=== PATIENT | female | born 1935 | race Two or more races ===

== ENCOUNTER 2023-07-27 12:35 | Inpatient (IN) | payer OTHER ==
[~2023-07-27] VITALS: Ht 157.5 cm; Wt 69.4 kg
[2023-07-27] MEDS ORDERED: TIROSINT50 MCG PO (13:37)
[2023-07-27] MEDS ORDERED: AZOR 10-20 MG1 EACH PO (13:38)
[2023-07-27] MEDS ORDERED: EPLERENONE25 MG (13:38)
[2023-07-27] MEDS ORDERED: DIOVAN160 M1 PO (13:38)
[2023-07-27] MEDS ORDERED: TRADJENTA5 MG PO (13:39)
[2023-07-27] MEDS ORDERED: ATORVASTATIN CA10 MG PO (13:39)
[2023-07-27] MEDS ORDERED: LANTUS SOL100 UNIT/1 (13:40)
[2023-08-01] MEDS ORDERED: DEXAMETHASONE6 MG PO ×2 (18:31→18:34)
== END 2023-08-01 19:12 | disposition home or self-care (01) | DRG 194 ==
LOC: ER 12:35 → SURH 23:29
PROVIDERS: General Practice; Internal Medicine Infectious Disease; ADMIT Internal Medicine; ATTEND Internal Medicine
PROC: BB24ZZZ Computerized Tomography (CT Scan) of Bilateral Lungs (ICD-10-PCS; 2023-07-27)
PROC: 8E0ZXY6 Isolation (ICD-10-PCS; principal; 2023-07-28)
PROC: XW033E5 Introduction of Remdesivir Anti-infective into Peripheral Vein, Percutaneous Approach, New Technology Group 5 (ICD-10-PCS; 2023-07-28)
PROC: 3E0F7GC Introduction of Other Therapeutic Substance into Respiratory Tract, Via Natural or Artificial Opening (ICD-10-PCS; 2023-07-28)
DX: J18.9 Pneumonia, unspecified organism (principal); I31.39 Other pericardial effusion (noninflammatory); J90 Pleural effusion, not elsewhere classified; U09.9 Post COVID-19 condition, unspecified; I10 Essential (primary) hypertension; E11.9 Type 2 diabetes mellitus without complications; E03.9 Hypothyroidism, unspecified; Z79.4 Long term (current) use of insulin

== ENCOUNTER 2023-12-07 18:59 | Inpatient (IN) | payer OTHER ==
[~2023-12-07] VITALS: Ht 157.5 cm; Wt 73.5 kg
[~2023-12-07 18:59] MED LIST: ATORVASTATIN CA10 MG PO; AZOR 10-20 MG1 EACH PO; DEXAMETHASONE6 MG PO; DIOVAN160 M1 PO; EPLERENONE25 MG; LANTUS SOL100 UNIT/1; TIROSINT50 MCG PO; TRADJENTA5 MG PO
[2023-12-08 00:12] LABS: HEMATOCRIT 35.4 % (36.0-45.00); HEMOGLOBIN 11.8 g/dL (12.0-15.00); MEAN CELL VOLUME 93.4 fL (80.00-100.00); MEAN CORPUSCULAR HEMOGLOBIN 31.1 pg (27.00-32.0); MEAN CORPUSCULAR HGB CONC 33.3 g/dl (32.0-36.0); PLATELET COUNT 334 K/uL (150-450); RED BLOOD COUNT 3.79 M/uL (4.00-6.00); RED CELL DISTRIBUTION WIDTH 14.4 % (11.5-14.5)
[2023-12-08 00:28] LABS: ALBUMIN 3.1 gm/dL (3.4-5.0); BILIRUBIN TOTAL 0.64 mg/dL (0.3-1.2); CALCIUM 9.4 mg/dL (8.5-10.1); CKMB 2.1 NG/ML (0.5-3.6); CREATININE SERUM 1.27 mg/dL (0.55-1.02); GFR 39.8; GLOBULINA 3.4 G/DL (2.4-3.5); MAGNESIUM 2.3 mg/dL (1.8-2.4); PHOSPHOROUS 3.6 mg/dL (2.5-4.9); POTASSIUM 4.42 mEq/L (3.5-5.1); TOTAL PROTEIN 6.5 gm/dL (6.4-8.2); TSH 2.07 uIU/mL (0.358-3.74)
[2023-12-08 00:32] LABS: ERYTHROCYTE SEDIMENTATION RATE 18 mm/hr
[2023-12-08 00:34] LABS: C-REACTIVE PROTEIN 5.42 MG/DL (0.00-0.29)
[2023-12-08 11:17] LABS: URINE APPEARANCE Clear; URINE BILIRRUBIN Negative (NEGATIVE); URINE BLOOD Large; URINE COLOR Yellow; URINE GLUCOSE Negative (NEGATIVE); URINE LEUKOCYTE Trace; URINE NITRATE Negative; URINE PROTEIN 30 (NEGATIVE)
[2023-12-08 11:22] LABS: URINE BACTERIA 103.3 uL (0.0-1933); URINE EPITHELIAL CELLS 22.7 uL (0.0-38.8); URINE RBC 87.8 uL (0.0-20.8); URINE WBC 67.5 uL (0.0-23.2)
[2023-12-09 07:33] LABS: ALBUMIN 2.7 gm/dL (3.4-5.0); BILIRUBIN TOTAL 0.51 mg/dL (0.3-1.2); CALCIUM 8.6 mg/dL (8.5-10.1); CREATININE SERUM 1.12 mg/dL (0.55-1.02); GFR 46.02; GLOBULINA 2.6 G/DL (2.4-3.5); MAGNESIUM 2.3 mg/dL (1.8-2.4); PHOSPHOROUS 3.1 mg/dL (2.5-4.9); POTASSIUM 4.47 mEq/L (3.5-5.1); TOTAL PROTEIN 5.3 gm/dL (6.4-8.2)
[2023-12-09 07:35] LABS: INR 1.05; PARTIAL THROMBOPLASTIN TIME 26.3 SECONDS (22.0-34.0)
[2023-12-09 07:39] LABS: HEMATOCRIT 28.3 % (36.0-45.00); HEMOGLOBIN 9.8 g/dL (12.0-15.00); MEAN CELL VOLUME 92.6 fL (80.00-100.00); MEAN CORPUSCULAR HGB CONC 34.6 g/dl (32.0-36.0); PLATELET COUNT 213 K/uL (150-450); RED BLOOD COUNT 3.06 M/uL (4.00-6.00); RED CELL DISTRIBUTION WIDTH 14.3 % (11.5-14.5)
[2023-12-10 06:40] LABS: HEMATOCRIT 29.4 % (36.0-45.00); MEAN CELL VOLUME 92.8 fL (80.00-100.00); MEAN CORPUSCULAR HEMOGLOBIN 31.7 pg (27.00-32.0); MEAN CORPUSCULAR HGB CONC 34.2 g/dl (32.0-36.0); RED BLOOD COUNT 3.17 M/uL (4.00-6.00); RED CELL DISTRIBUTION WIDTH 14.2 % (11.5-14.5)
[2023-12-10 07:27] LABS: ALBUMIN 2.8 gm/dL (3.4-5.0); BILIRUBIN TOTAL 0.71 mg/dL (0.3-1.2); CALCIUM 8.2 mg/dL (8.5-10.1); CREATININE SERUM 1.05 mg/dL (0.55-1.02); GFR 49.57; GLOBULINA 2.6 G/DL (2.4-3.5); MAGNESIUM 2.3 mg/dL (1.8-2.4); PHOSPHOROUS 2.7 mg/dL (2.5-4.9); POTASSIUM 4.11 mEq/L (3.5-5.1); TOTAL PROTEIN 5.4 gm/dL (6.4-8.2)
[2023-12-10 08:15] LABS: PLATELET COUNT 275 K/uL (150-450)
[2023-12-11 06:16] LABS: HEMOGLOBIN 9.5 g/dL (12.0-15.00); MEAN CELL VOLUME 91.2 fL (80.00-100.00); RED BLOOD COUNT 3.07 M/uL (4.00-6.00); RED CELL DISTRIBUTION WIDTH 14.8 % (11.5-14.5)
[2023-12-11 08:09] LABS: PLATELET COUNT 239 K/uL (150-450)
[2023-12-11 08:11] LABS: PLATELET ESTIMATE NORMAL (NORMAL)
[2023-12-13 07:25] LABS: HEMATOCRIT 30.5 % (36.0-45.00); HEMOGLOBIN 10.4 g/dL (12.0-15.00); MEAN CELL VOLUME 92.9 fL (80.00-100.00); MEAN CORPUSCULAR HEMOGLOBIN 31.6 pg (27.00-32.0); PLATELET COUNT 423 K/uL (150-450); RED BLOOD COUNT 3.28 M/uL (4.00-6.00); RED CELL DISTRIBUTION WIDTH 14.4 % (11.5-14.5)
[2023-12-13 07:30] LABS: ALBUMIN 2.6 gm/dL (3.4-5.0); BILIRUBIN TOTAL 0.45 mg/dL (0.3-1.2); CALCIUM 8.1 mg/dL (8.5-10.1); CREATININE SERUM 1.46 mg/dL (0.55-1.02); GFR 33.89; GLOBULINA 2.5 G/DL (2.4-3.5); MAGNESIUM 2.1 mg/dL (1.8-2.4); PHOSPHOROUS 2.7 mg/dL (2.5-4.9); POTASSIUM 3.93 mEq/L (3.5-5.1); TOTAL PROTEIN 5.1 gm/dL (6.4-8.2)
[2023-12-13 08:10] LABS: CA 125 18.8 U/mL (0.0-38.1)
[2023-12-13 08:13] LABS: FERRITIN 895.8 NG/ML (8-252)
[2023-12-13 10:07] LABS: CA 15-3 4.5 U/mL (0.0-25.0)
[2023-12-13 20:09] LABS: PLEURAL FLUID APPEARANCE HAZY; PLEURAL FLUID COLOR YELLOW
[2023-12-13 20:18] LABS: TP PLEURAL FLUID 2.6 g/dl
[2023-12-13 20:44] LABS: MONONUCLEAR 91 %; POLYMORPHONUCLEAR 9 %
[2023-12-14 08:07] LABS: BETA-2-MICROGLOBULINA 2.7 mg/L (0.6-2.4)
[2023-12-14 10:11] LABS: HEPATITIS B CORE IGG Negative (Negative); HEPATITIS B SURFACE ANTIBODY Non Reactive (.)
[2023-12-15 07:42] LABS: ALBUMIN 2.5 gm/dL (3.4-5.0); BILIRUBIN TOTAL 0.28 mg/dL (0.3-1.2); CALCIUM 7.9 mg/dL (8.5-10.1); CREATININE SERUM 1.52 mg/dL (0.55-1.02); GFR 32.35; GLOBULINA 2.3 G/DL (2.4-3.5); POTASSIUM 4.07 mEq/L (3.5-5.1); TOTAL PROTEIN 4.8 gm/dL (6.4-8.2)
[2023-12-17 06:09] LABS: HEMOGLOBIN 9.5 g/dL (12.0-15.00); MEAN CELL VOLUME 91.8 fL (80.00-100.00); MEAN CORPUSCULAR HEMOGLOBIN 31.2 pg (27.00-32.0); PLATELET COUNT 297 K/uL (150-450); RED BLOOD COUNT 3.05 M/uL (4.00-6.00); RED CELL DISTRIBUTION WIDTH 15.1 % (11.5-14.5)
[2023-12-17 06:36] LABS: ALBUMIN 2.3 gm/dL (3.4-5.0); CALCIUM 7.6 mg/dL (8.5-10.1); CREATININE SERUM 1.51 mg/dL (0.55-1.02); GFR 32.6; PHOSPHOROUS 2.2 mg/dL (2.5-4.9); POTASSIUM 4.05 mEq/L (3.5-5.1)
[2023-12-17 16:06] LABS: ANTI MITOCHONDRIAL ANTIBODIES < 20.0 Units (0.0-20.0); SMOOTH MUSCLE ANTIBODY 4 Units (0-19)
[2023-12-17 16:08] LABS: CREATININE SERUM 1.51 mg/dL (0.6-1.0)
[2023-12-18 05:32] LABS: ALBUMIN 2.5 gm/dL (3.4-5.0); BILIRUBIN TOTAL 0.42 mg/dL (0.3-1.2); CALCIUM 7.9 mg/dL (8.5-10.1); CREATININE SERUM 1.45 mg/dL (0.55-1.02); GFR 34.16; GLOBULINA 2.4 G/DL (2.4-3.5); POTASSIUM 4.21 mEq/L (3.5-5.1); TOTAL PROTEIN 4.9 gm/dL (6.4-8.2)
[2023-12-18 05:50] LABS: URINE APPEARANCE Cloudy; URINE BILIRRUBIN Small (NEGATIVE); URINE BLOOD Large; URINE COLOR Dark Yellow; URINE GLUCOSE Negative (NEGATIVE); URINE LEUKOCYTE Small; URINE NITRATE Positive; URINE PROTEIN 30 (NEGATIVE); URINE UROBILINOGEN 0.2 E.U./dl
[2023-12-18 05:54] LABS: URINE BACTERIA 65.5 uL (0.0-1933); URINE EPITHELIAL CELLS 87.3 uL (0.0-38.8); URINE RBC 181.5 uL (0.0-20.8); URINE WBC 83.4 uL (0.0-23.2)
[2023-12-18 10:58] LABS: URINE PROT QUANT 24HR 38.3 MG/DL
[2023-12-18 10:59] LABS: URINE PROT QUANT 24 HR 76.6 MG/24HR (42-225)
[2023-12-19 04:56] LABS: HEMATOCRIT 29.1 % (36.0-45.00); HEMOGLOBIN 9.8 g/dL (12.0-15.00); MEAN CELL VOLUME 91.2 fL (80.00-100.00); MEAN CORPUSCULAR HEMOGLOBIN 30.7 pg (27.00-32.0); MEAN CORPUSCULAR HGB CONC 33.6 g/dl (32.0-36.0); PLATELET COUNT 360 K/uL (150-450); RED BLOOD COUNT 3.19 M/uL (4.00-6.00); RED CELL DISTRIBUTION WIDTH 14.8 % (11.5-14.5)
[2023-12-19 05:19] LABS: ALBUMIN 2.3 gm/dL (3.4-5.0); CALCIUM 8.1 mg/dL (8.5-10.1); CREATININE SERUM 1.35 mg/dL (0.55-1.02); GFR 37.09; PHOSPHOROUS 3.3 mg/dL (2.5-4.9); POTASSIUM 4.08 mEq/L (3.5-5.1)
[2023-12-19 09:31] LABS: PLATELET ESTIMATE NORMAL (NORMAL)
[2023-12-21 07:00] LABS: ALBUMIN 2.3 gm/dL (3.4-5.0); BILIRUBIN TOTAL 0.34 mg/dL (0.3-1.2); CALCIUM 7.6 mg/dL (8.5-10.1); CREATININE SERUM 1.56 mg/dL (0.55-1.02); GFR 31.39; GLOBULINA 2.5 G/DL (2.4-3.5); MAGNESIUM 2.3 mg/dL (1.8-2.4); PHOSPHOROUS 3.1 mg/dL (2.5-4.9); POTASSIUM 3.63 mEq/L (3.5-5.1); TOTAL PROTEIN 4.8 gm/dL (6.4-8.2)
[2023-12-21 07:07] LABS: HEMATOCRIT 26.1 % (36.0-45.00); MEAN CELL VOLUME 92.3 fL (80.00-100.00); MEAN CORPUSCULAR HGB CONC 34.3 g/dl (32.0-36.0); PLATELET COUNT 250 K/uL (150-450); RED BLOOD COUNT 2.83 M/uL (4.00-6.00); RED CELL DISTRIBUTION WIDTH 15.1 % (11.5-14.5)
[2023-12-21 08:10] LABS: MEAN CORPUSCULAR HEMOGLOBIN 31.8 pg (27.00-32.0)
[2023-12-21] MEDS ORDERED: EPLERENONE25 MG PO (16:18)
[2023-12-22 10:14] LABS: IMMUNOGLOBULIN A 276 mg/dL (64-422); IMMUNOGLOBULIN G 1222 mg/dL (586-1602); IMMUNOGLOBULIN M 211 mg/dL (26-217)
[2023-12-24 09:48] LABS: alpha 1 g 0.4; alpha 2 0.8; beta g 0.7; gamma g 0.8; prot total 5.3
[2023-12-24 09:49] LABS: globulin t 2.7; m spike 0
== END 2023-12-21 16:45 | disposition home or self-care (01) | DRG 187 ==
LOC: ER 18:59 → MEDI 22:35 → MEDJ 12-13 10:38 → MEDI 12-13 13:19 → MEDJ 12-20 20:45
PROVIDERS: Internal Medicine; Internal Medicine Gastroenterology; Internal Medicine Hematology & Oncology; Internal Medicine Infectious Disease; Radiology Vascular & Interventional Radiology; ADMIT Internal Medicine; ATTEND Internal Medicine
PROC: BW21ZZZ Computerized Tomography (CT Scan) of Abdomen and Pelvis (ICD-10-PCS; 2023-12-07)
PROC: B24BYZZ Ultrasonography of Heart with Aorta using Other Contrast (ICD-10-PCS; 2023-12-07)
PROC: BW24ZZZ Computerized Tomography (CT Scan) of Chest and Abdomen (ICD-10-PCS; 2023-12-10)
PROC: 0W9G3ZZ Drainage of Peritoneal Cavity, Percutaneous Approach (ICD-10-PCS; 2023-12-11)
PROC: 0DJ08ZZ Inspection of Upper Intestinal Tract, Via Natural or Artificial Opening Endoscopic (ICD-10-PCS; principal; 2023-12-12)
PROC: 0W993ZZ Drainage of Right Pleural Cavity, Percutaneous Approach (ICD-10-PCS; 2023-12-13)
PROC: 0WBH4ZX Excision of Retroperitoneum, Percutaneous Endoscopic Approach, Diagnostic (ICD-10-PCS; 2023-12-13)
PROC: 0W9B3ZZ Drainage of Left Pleural Cavity, Percutaneous Approach (ICD-10-PCS; 2023-12-14)
PROC: 0D9680Z Drainage of Stomach with Drainage Device, Via Natural or Artificial Opening Endoscopic (ICD-10-PCS; 2023-12-18)
PROC: BW21ZZZ Computerized Tomography (CT Scan) of Abdomen and Pelvis (ICD-10-PCS; 2023-12-19)
PROC: 079T3ZX Drainage of Bone Marrow, Percutaneous Approach, Diagnostic (ICD-10-PCS; 2023-12-20)
DX: J90 Pleural effusion, not elsewhere classified (principal); C85.90 Non-Hodgkin lymphoma, unspecified, unspecified site; I31.39 Other pericardial effusion (noninflammatory); N04.9 Nephrotic syndrome with unspecified morphologic changes; R18.8 Other ascites; N39.0 Urinary tract infection, site not specified; K92.2 Gastrointestinal hemorrhage, unspecified; J98.11 Atelectasis; K52.9 Noninfective gastroenteritis and colitis, unspecified; K74.60 Unspecified cirrhosis of liver; R59.0 Localized enlarged lymph nodes; I10 Essential (primary) hypertension

== ENCOUNTER 2023-12-25 23:03 | Inpatient (IN) | payer OTHER ==
[~2023-12-25] VITALS: Ht 160 cm; Wt 74.8 kg
[~2023-12-25 23:03] MED LIST changes: +EPLERENONE25 MG PO
[2023-12-25 23:38] LABS: ABG PH 7.433 (7.35-7.45); ABG pCO2 30.1 mmHg (35-45)
[2023-12-25 23:39] LABS: ABG PO2 118.6 mmHg (80-100); BASE EXCESS -3.3 mmol/l; BICARBONATE 19.6 mmol/l (23-25); SaO2 98.7 %; Tco2 20.6 mmol/l; allen test SATISFACTORY; o2 100 %; puncture site RADIAL LEFT
[2023-12-25] MEDS ORDERED: METHYLPREDNISOLONE SOD SUCC 125 MG VIAL IV SCH (23:45)
[2023-12-25] MEDS ORDERED: FUROsemide 40 MG/4 ML VIAL IV SCH (23:45)
[2023-12-26 00:02] LABS: HEMATOCRIT 27.7 % (36.0-45.00); HEMOGLOBIN 9.2 g/dL (12.0-15.00); MEAN CELL VOLUME 91.7 fL (80.00-100.00); MEAN CORPUSCULAR HEMOGLOBIN 30.3 pg (27.00-32.0); MEAN CORPUSCULAR HGB CONC 33.1 g/dl (32.0-36.0); PLATELET COUNT 283 K/uL (150-450); RED BLOOD COUNT 3.02 M/uL (4.00-6.00); RED CELL DISTRIBUTION WIDTH 15.3 % (11.5-14.5)
[2023-12-26] MEDS ORDERED: CEFTRIAXONE SODIUM 1,000 MG VIAL IV STA (00:11)
[2023-12-26 00:16] LABS: INR 1.13; PROTHROMBIN TIME 11.8 SECONDS (9.0-11.5)
[2023-12-26 00:45] LABS: URINE APPEARANCE Clear; URINE BILIRRUBIN Negative (NEGATIVE); URINE BLOOD Large; URINE COLOR Yellow; URINE GLUCOSE Negative (NEGATIVE); URINE LEUKOCYTE Negative; URINE NITRATE Negative; URINE UROBILINOGEN 0.2 E.U./dl
[2023-12-26] MEDS ORDERED: ACETAMINOPHEN 650 MG SUPP.RECT RECTAL ONE (00:45)
[2023-12-26 00:49] LABS: ALBUMIN 2.4 gm/dL (3.4-5.0); BILIRUBIN TOTAL 0.52 mg/dL (0.3-1.2); CALCIUM 7.9 mg/dL (8.5-10.1); CREATININE SERUM 1.34 mg/dL (0.55-1.02); GFR 37.41; GLOBULINA 3.2 G/DL (2.4-3.5); POTASSIUM 4.77 mEq/L (3.5-5.1); TOTAL PROTEIN 5.6 gm/dL (6.4-8.2); URINE BACTERIA 61.7 uL (0.0-1933); URINE RBC 83.2 uL (0.0-20.8); URINE WBC 46.3 uL (0.0-23.2)
[2023-12-26 01:12] LABS: URINE PROTEIN 100 (NEGATIVE)
[2023-12-26] MEDS ORDERED: LEVALBUTEROL HCL 0.63 MG/3 ML SOLUTION IH SCH ×2 (02:00→10:34)
[2023-12-26] MEDS ORDERED: NITROGLYCERIN IN 5 % DEXTROSE 250 ML IV SCH (02:00)
[2023-12-26] MEDS ORDERED: INSULIN REGULAR, HUMAN 300 UNITS/3 ML UNITS IV STA ×2 (03:46→07:37)
[2023-12-26] MEDS ORDERED: ASPIRIN 325 MG TABLET PO STA (05:55)
[2023-12-26] MEDS ORDERED: FUROsemide 40 MG/4 ML VIAL IV SCH (09:00)
[2023-12-26] MEDS ORDERED: INSULIN REGULAR, HUMAN 1,000 UNIT/10 ML UNITS SUBCUTANEO STA (09:27)
[2023-12-26] MEDS ORDERED: SODIUM CHLORIDE 0.45 % 1,000 ML IV SCH (10:30)
[2023-12-26] MEDS ORDERED: DEXAMETHASONE SODIUM PHOSPHATE 4 MG/ML VIAL IV STA (10:39)
[2023-12-26] MEDS ORDERED: AZITHROMYCIN 500 MG in DEXTROSE 5 % IN WATER 250 ML IV SCH (10:39)
[2023-12-26] MEDS ORDERED: MEROPENEM 500 MG/VIAL VIAL IV SCH (10:39)
[2023-12-26] MEDS ORDERED: PATIENTS OWN MEDICATION (MEDICAMENTO EN PISO) PO SCH ×2 (10:41→10:49)
[2023-12-26] MEDS ORDERED: FAMOTIDINE/PF 20 MG in 0.9 % SODIUM CHLORIDE 8 ML IV PUSH SCH (10:44)
[2023-12-26] MEDS ORDERED: INSULIN LISPRO 1,000 UNIT/10 ML UNITS SUBCUTANEO PRN (10:45)
[2023-12-26] MEDS ORDERED: ENOXAPARIN SODIUM 40 MG/0.4 ML SYRINGE SUBCUTANEO SCH (10:45)
[2023-12-26] MEDS ORDERED: DEXTROSE 50 % IN WATER 0.5 G/ML DISP.SYRIN IV PRN (10:45)
[2023-12-26] MEDS ORDERED: hydrALAZINE HCL 20 MG VIAL IV PRN (11:00)
[2023-12-26 11:52] LABS: CKMB 2.5 NG/ML (0.5-3.6)
[2023-12-26] MEDS ORDERED: ZINC OXIDE 30 GM,NYSTATIN 30 GM TOP SCH (12:09)
[2023-12-26] MEDS ORDERED: VANCOMYCIN HCL 1,000 MG VIAL IV SCH (14:00)
[2023-12-26] MEDS ORDERED: FUROsemide 40 MG/4 ML VIAL IV STA (15:47)
[2023-12-26] MEDS ORDERED: IPRATROPIUM BROMIDE 0.5 MG/2.5 ML AMPUL.NEB IH SCH (17:00)
[2023-12-26] MEDS ORDERED: ATORVASTATIN CALCIUM 10 MG TABLET PO SCH (17:00)
[2023-12-26] MEDS ORDERED: IRON/V.C/V.B12/FOLIC A/VIT. E 1 CAPL CAPLET PO SCH (17:10)
[2023-12-26] MEDS ORDERED: GABAPENTIN 300 MG CAPSULE PO SCH (17:58)
[2023-12-26] MEDS ORDERED: DEXAMETHASONE SODIUM PHOSPHATE 4 MG/ML VIAL IV SCH (18:00)
[2023-12-26 18:37] LABS: ABG PH 7.449 (7.35-7.45); ABG PO2 67.3 mmHg (80-100); ABG pCO2 29.9 mmHg (35-45)
[2023-12-26 18:38] LABS: BASE EXCESS -2.4 mmol/l; BICARBONATE 20.3 mmol/l (23-25); Tco2 21.2 mmol/l; allen test SATISFACTORY; o2 50 %; puncture site RADIAL LEFT
[2023-12-26 18:39] LABS: SaO2 93.9 %
[2023-12-26] MEDS ORDERED: INSULIN GLARGINE,HUM.REC.ANLOG 1,000 UNITS/10 ML UNITS SUBCUTANEO SCH (21:00)
[2023-12-26 22:08] LABS: CKMB 2.8 NG/ML (0.5-3.6)
[2023-12-27] MEDS ORDERED: LEVOTHYROXINE SODIUM 50 MCG TABLET PO SCH (06:00)
[2023-12-27 06:35] LABS: MEAN CELL VOLUME 91.1 fL (80.00-100.00); MEAN CORPUSCULAR HGB CONC 33.3 g/dl (32.0-36.0); PLATELET COUNT 252 K/uL (150-450); RED CELL DISTRIBUTION WIDTH 15.4 % (11.5-14.5)
[2023-12-27 06:48] LABS: ERYTHROCYTE SEDIMENTATION RATE 43 mm/hr
[2023-12-27 07:05] LABS: ALBUMIN 2.1 gm/dL (3.4-5.0); BILIRUBIN TOTAL 0.22 mg/dL (0.3-1.2); CREATININE SERUM 1.61 mg/dL (0.55-1.02); GFR 30.27; GLOBULINA 2.9 G/DL (2.4-3.5); PHOSPHOROUS 3.1 mg/dL (2.5-4.9); POTASSIUM 3.76 mEq/L (3.5-5.1); TSH 1.18 uIU/mL (0.358-3.74)
[2023-12-27 07:11] LABS: C-REACTIVE PROTEIN 23.8 MG/DL (0.00-0.29)
[2023-12-27 07:21] LABS: HEMATOCRIT 22.8 % (36.0-45.00); HEMOGLOBIN 7.6 g/dL (12.0-15.00); MEAN CORPUSCULAR HEMOGLOBIN 30.4 pg (27.00-32.0)
[2023-12-27] MEDS ORDERED: FUROsemide 20 MG/2 ML VIAL IV SCH (09:15)
[2023-12-27] MEDS ORDERED: ACETAMINOPHEN 325 MG TABLET PO PRN (19:30)
[2023-12-28 09:48] LABS: CKMB 4.3 NG/ML (0.5-3.6)
[2023-12-28 14:30] LABS: PLATELET ESTIMATE NORMAL (NORMAL)
[2023-12-28] MEDS ORDERED: SPIRONOLACTONE 25 MG TABLET PO SCH (17:00)
[2023-12-28] MEDS ORDERED: AMLODIPINE BESYLATE 5 MG TABLET PO SCH (17:13)
[2023-12-28] MEDS ORDERED: ANIDULAFUNGIN 100 MG VIAL IV ONE (19:00)
[2023-12-28] MEDS ORDERED: LINEZOLID IN DEXTROSE 5% 300 ML IV SCH (21:00)
[2023-12-28] MEDS ORDERED: INSULIN GLARGINE,HUM.REC.ANLOG 1,000 UNITS/10 ML UNITS SUBCUTANEO SCH (21:03)
[2023-12-29] MEDS ORDERED: FUROsemide 20 MG/2 ML VIAL IV SCH (00:30)
[2023-12-29 04:44] LABS: HEMOGLOBIN 11.5 g/dL (12.0-15.00); MEAN CELL VOLUME 88.8 fL (80.00-100.00); MEAN CORPUSCULAR HEMOGLOBIN 30.1 pg (27.00-32.0); MEAN CORPUSCULAR HGB CONC 33.9 g/dl (32.0-36.0); PLATELET COUNT 257 K/uL (150-450); RED BLOOD COUNT 3.83 M/uL (4.00-6.00); RED CELL DISTRIBUTION WIDTH 14.9 % (11.5-14.5)
[2023-12-29] MEDS ORDERED: CHLORHEXIDINE GLUCONATE 120 ML BOTTLE TOP ONE ×2 (10:32→11:45)
[2023-12-29] MEDS ORDERED: VANCOMYCIN HCL 1,000 MG VIAL IV SCH (14:00)
[2023-12-29] MEDS ORDERED: ANIDULAFUNGIN 100 MG VIAL IV SCH (17:00)
[2023-12-30 07:37] LABS: BILIRUBIN TOTAL 0.26 mg/dL (0.3-1.2); CALCIUM 8.4 mg/dL (8.5-10.1); CREATININE SERUM 1.35 mg/dL (0.55-1.02); GFR 37.09; GLOBULINA 2.9 G/DL (2.4-3.5); MAGNESIUM 2.4 mg/dL (1.8-2.4); PHOSPHOROUS 2.9 mg/dL (2.5-4.9); POTASSIUM 4.78 mEq/L (3.5-5.1); TOTAL PROTEIN 4.9 gm/dL (6.4-8.2)
[2023-12-30 07:38] LABS: HEMATOCRIT 33.8 % (36.0-45.00); HEMOGLOBIN 11.4 g/dL (12.0-15.00); MEAN CELL VOLUME 90.3 fL (80.00-100.00); MEAN CORPUSCULAR HEMOGLOBIN 30.5 pg (27.00-32.0); MEAN CORPUSCULAR HGB CONC 33.7 g/dl (32.0-36.0); PLATELET COUNT 258 K/uL (150-450); RED BLOOD COUNT 3.74 M/uL (4.00-6.00); RED CELL DISTRIBUTION WIDTH 15.6 % (11.5-14.5)
[2023-12-30 07:40] LABS: C-REACTIVE PROTEIN 4.78 MG/DL (0.00-0.29)
[2023-12-30] MEDS ORDERED: INSULIN GLARGINE,HUM.REC.ANLOG 1,000 UNITS/10 ML UNITS SUBCUTANEO ONE (09:00)
[2023-12-30] MEDS ORDERED: INSULIN REGULAR, HUMAN 300 UNITS/3 ML UNITS SUBCUTANEO ONE (15:15)
[2023-12-30] MEDS ORDERED: INSULIN LISPRO 1,000 UNIT/10 ML UNITS SUBCUTANEO SCH (16:00)
[2023-12-31] MEDS ORDERED: INSULIN GLARGINE,HUM.REC.ANLOG 1,000 UNITS/10 ML UNITS SUBCUTANEO SCH ×2 (09:00→21:00)
[2023-12-31] MEDS ORDERED: DEXAMETHASONE SODIUM PHOSPHATE 4 MG/ML VIAL IV SCH (21:00)
[2023-12-31] MEDS ORDERED: FAMOTIDINE/PF 20 MG/2 ML VIAL IV SCH (21:00)
[2023-12-31] MEDS ORDERED: NIFEDIPINE 30 MG TAB.SA.OSM PO SCH (23:36)
[2024-01-01 06:25] LABS: HEMATOCRIT 37.6 % (36.0-45.00); HEMOGLOBIN 12.6 g/dL (12.0-15.00); MEAN CELL VOLUME 91.3 fL (80.00-100.00); MEAN CORPUSCULAR HEMOGLOBIN 30.7 pg (27.00-32.0); MEAN CORPUSCULAR HGB CONC 33.6 g/dl (32.0-36.0); PLATELET COUNT 204 K/uL (150-450); RED BLOOD COUNT 4.12 M/uL (4.00-6.00); RED CELL DISTRIBUTION WIDTH 15.4 % (11.5-14.5)
[2024-01-01 07:05] LABS: BILIRUBIN TOTAL 0.39 mg/dL (0.3-1.2); CALCIUM 8.6 mg/dL (8.5-10.1); CREATININE SERUM 1.01 mg/dL (0.55-1.02); GFR 51.85; GLOBULINA 2.9 G/DL (2.4-3.5); MAGNESIUM 2.3 mg/dL (1.8-2.4); PHOSPHOROUS 3.2 mg/dL (2.5-4.9); POTASSIUM 5.45 mEq/L (3.5-5.1); TOTAL PROTEIN 4.9 gm/dL (6.4-8.2)
[2024-01-01 07:11] LABS: C-REACTIVE PROTEIN 1.35 MG/DL (0.00-0.29)
[2024-01-01 09:33] LABS: ABG PH 7.466 (7.35-7.45)
[2024-01-01 09:34] LABS: ABG PO2 157.7 mmHg (80-100); ABG pCO2 34.3 mmHg (35-45); BICARBONATE 24.2 mmol/l (23-25); SaO2 99.5 %; Tco2 25.2 mmol/l; allen test SATISFACTORY; o2 100 %; puncture site RADIAL LEFT
[2024-01-01] MEDS ORDERED: NITROGLYCERIN 1 INCH OINT..GM. TD SCH (18:42)
[2024-01-02] MEDS ORDERED: QUETIAPINE FUMARATE 25 MG TABLET PO SCH (09:00)
[2024-01-02] MEDS ORDERED: DEXAMETHASONE SODIUM PHOSPHATE 4 MG/ML VIAL IV SCH (09:00)
[2024-01-02] MEDS ORDERED: INSULIN GLARGINE,HUM.REC.ANLOG 1,000 UNITS/10 ML UNITS SUBCUTANEO SCH (09:00)
[2024-01-02] MEDS ORDERED: INSULIN LISPRO 1,000 UNIT/10 ML UNITS SUBCUTANEO SCH (12:00)
[2024-01-02 12:35] LABS: HEMATOCRIT 38.1 % (36.0-45.00); HEMOGLOBIN 12.4 g/dL (12.0-15.00); MEAN CELL VOLUME 90.4 fL (80.00-100.00); MEAN CORPUSCULAR HEMOGLOBIN 29.5 pg (27.00-32.0); MEAN CORPUSCULAR HGB CONC 32.6 g/dl (32.0-36.0); PLATELET COUNT 170 K/uL (150-450); RED BLOOD COUNT 4.22 M/uL (4.00-6.00); RED CELL DISTRIBUTION WIDTH 15.6 % (11.5-14.5)
[2024-01-02 13:12] LABS: ALBUMIN 2.1 gm/dL (3.4-5.0); BILIRUBIN TOTAL 0.61 mg/dL (0.3-1.2); CALCIUM 8.3 mg/dL (8.5-10.1); CREATININE SERUM 0.95 mg/dL (0.55-1.02); GFR 55.64; GLOBULINA 2.7 G/DL (2.4-3.5); MAGNESIUM 2.2 mg/dL (1.8-2.4); PHOSPHOROUS 3.2 mg/dL (2.5-4.9); POTASSIUM 5.26 mEq/L (3.5-5.1); TOTAL PROTEIN 4.8 gm/dL (6.4-8.2)
[2024-01-02] MEDS ORDERED: FUROsemide 20 MG/2 ML VIAL IV SCH (21:00)
[2024-01-03 06:42] LABS: PH,URINE 5.5 (5.0-8.0); URINE APPEARANCE Turbid; URINE BILIRRUBIN Negative (NEGATIVE); URINE BLOOD Large; URINE COLOR Yellow; URINE GLUCOSE Negative (NEGATIVE); URINE LEUKOCYTE Trace; URINE NITRATE Negative; URINE PROTEIN Negative (NEGATIVE); URINE UROBILINOGEN 0.2 E.U./dl
[2024-01-03 06:46] LABS: URINE BACTERIA 89.4 uL (0.0-1933); URINE EPITHELIAL CELLS 8.9 uL (0.0-38.8); URINE RBC 652.1 uL (0.0-20.8); URINE WBC 69.2 uL (0.0-23.2)
[2024-01-03 07:04] LABS: URINE CRYSTALS MANY /HPF
[2024-01-03] MEDS ORDERED: FAMOTIDINE/PF 20 MG/2 ML VIAL IV SCH (09:00)
[2024-01-04] MEDS ORDERED: LORazepam 2 MG/ML VIAL IV PRN (03:15)
[2024-01-04 09:10] LABS: ABG PH 7.479 (7.35-7.45); ABG pCO2 38.2 mmHg (35-45)
[2024-01-04 09:11] LABS: ABG PO2 192.8 mmHg (80-100); BASE EXCESS 4.2 mmol/l; BICARBONATE 27.8 mmol/l (23-25); SaO2 99.7 %; Tco2 28.9 mmol/l; allen test SATISFACTORY; o2 100 %; puncture site RADIAL LEFT
[2024-01-04] MEDS ORDERED: FUROsemide 20 MG/2 ML VIAL IV SCH (21:00)
[2024-01-05 08:36] LABS: HEMATOCRIT 38.7 % (36.0-45.00); MEAN CORPUSCULAR HEMOGLOBIN 30.8 pg (27.00-32.0); MEAN CORPUSCULAR HGB CONC 33.5 g/dl (32.0-36.0); RED BLOOD COUNT 4.21 M/uL (4.00-6.00); RED CELL DISTRIBUTION WIDTH 14.9 % (11.5-14.5)
[2024-01-05 09:15] LABS: ALBUMIN 2.4 gm/dL (3.4-5.0); BILIRUBIN TOTAL 1.05 mg/dL (0.3-1.2); CALCIUM 8.4 mg/dL (8.5-10.1); CREATININE SERUM 0.91 mg/dL (0.55-1.02); GFR 58.48; GLOBULINA 2.3 G/DL (2.4-3.5); POTASSIUM 5.08 mEq/L (3.5-5.1); TOTAL PROTEIN 4.7 gm/dL (6.4-8.2)
[2024-01-05 09:21] LABS: PLATELET COUNT 96 K/uL (150-450)
[2024-01-05] MEDS ORDERED: AMLODIPINE BESYLATE 5 MG TABLET PO SCH (11:01)
[2024-01-05] MEDS ORDERED: hydrALAZINE HCL 20 MG VIAL IV PRN (11:02)
[2024-01-05 14:21] LABS: PLATELET COUNT 64 K/uL (150-450)
[2024-01-05 14:22] LABS: PLT IN CITRATE 74 K/uL (150-450)
[2024-01-05 14:35] LABS: INR 1.1; PARTIAL THROMBOPLASTIN TIME 31.5 SECONDS (22.0-34.0); PROTHROMBIN TIME 11.5 SECONDS (9.0-11.5)
[2024-01-05] MEDS ORDERED: LISINOPRIL 10 MG TABLET PO SCH (17:00)
[2024-01-05] MEDS ORDERED: MEROPENEM 1,000 MG VIAL IV SCH (17:00)
[2024-01-06] MEDS ORDERED: PREDNISONE 20 MG TABLET PO SCH (09:00)
[2024-01-06] MEDS ORDERED: FLUDROCORTISONE ACETATE 0.1 MG TABLET PO SCH (09:00)
[2024-01-06] MEDS ORDERED: AMLODIPINE BESYL5 MG PO (11:44)
[2024-01-06] MEDS ORDERED: EPLERENONE25 MG PO (11:45)
[2024-01-06] MEDS ORDERED: ATORVASTATIN CA10 MG PO (11:45)
[2024-01-06] MEDS ORDERED: DIOVAN160 M1 PO (11:46)
[2024-01-06] MEDS ORDERED: DEXAMETHASONE6 MG PO (11:46)
[2024-01-06] MEDS ORDERED: FLUDROCORTISON0.1 MG PO (11:47)
[2024-01-06] MEDS ORDERED: Ferro-Plex CAPLET PO (11:47)
[2024-01-06] MEDS ORDERED: TRADJENTA5 MG PO (11:47)
[2024-01-06] MEDS ORDERED: TIROSINT50 MCG PO (11:47)
== END 2024-01-06 13:51 | disposition home or self-care (01) | DRG 871 ==
LOC: ER 23:03 → ICU-2 12-26 10:59 → ICU 12-29 03:30 → SURH 01-03 20:56
PROVIDERS: Emergency Medicine; Internal Medicine; Internal Medicine Critical Care Medicine; Internal Medicine Infectious Disease; Internal Medicine Nephrology; ADMIT Internal Medicine; ATTEND Internal Medicine
PROC: BW24ZZZ Computerized Tomography (CT Scan) of Chest and Abdomen (ICD-10-PCS; 2023-12-26)
PROC: B24BZZZ Ultrasonography of Heart with Aorta (ICD-10-PCS; 2023-12-26)
PROC: 02HV33Z Insertion of Infusion Device into Superior Vena Cava, Percutaneous Approach (ICD-10-PCS; 2023-12-26)
PROC: 30233N1 Transfusion of Nonautologous Red Blood Cells into Peripheral Vein, Percutaneous Approach (ICD-10-PCS; 2023-12-27)
PROC: B44HZZZ Ultrasonography of Bilateral Lower Extremity Arteries (ICD-10-PCS; principal; 2023-12-31)
PROC: 4A12X4Z Monitoring of Cardiac Electrical Activity, External Approach (ICD-10-PCS; 2024-01-03)
DX: A41.9 Sepsis, unspecified organism (principal); I21.4 Non-ST elevation (NSTEMI) myocardial infarction; J18.9 Pneumonia, unspecified organism; N17.9 Acute kidney failure, unspecified; C91.10 Chronic lymphocytic leukemia of B-cell type not having achieved remission; J44.1 Chronic obstructive pulmonary disease with (acute) exacerbation; J45.901 Unspecified asthma with (acute) exacerbation; D63.0 Anemia in neoplastic disease; C88.0 Waldenstrom macroglobulinemia; E11.65 Type 2 diabetes mellitus with hyperglycemia; Z79.4 Long term (current) use of insulin; Z20.822 Contact with and (suspected) exposure to COVID-19; Y95 Nosocomial condition; I12.9 Hypertensive chronic kidney disease with stage 1 through stage 4 chronic kidney disease, or unspecified chronic kidney disease; E11.22 Type 2 diabetes mellitus with diabetic chronic kidney disease; N18.2 Chronic kidney disease, stage 2 (mild); R41.82 Altered mental status, unspecified; E03.9 Hypothyroidism, unspecified